=== PATIENT | male | born 1965 | race Two or more races ===

== ENCOUNTER 2024-08-23 08:59 | Outpatient (CLI) | payer OTHER ==
[~2024-08-23] VITALS: Ht 170.2 cm; Wt 86.2 kg
[2024-08-23 10:10] LABS: PH,URINE 5.5 (5.0-8.0); URINE APPEARANCE Clear; URINE BILIRRUBIN Negative (NEGATIVE); URINE BLOOD Small; URINE COLOR Yellow; URINE GLUCOSE Negative (NEGATIVE); URINE KETONE Negative (NEGATIVE); URINE LEUKOCYTE Negative; URINE NITRATE Negative; URINE PROTEIN Negative (NEGATIVE); URINE UROBILINOGEN 0.2 E.U./dl
[2024-08-23 10:11] LABS: URINE BACTERIA 28.1 uL (0.0-1933); URINE EPITHELIAL CELLS 3.4 uL (0.0-38.8); URINE RBC 28.1 uL (0.0-20.8); URINE WBC 3.7 uL (0.0-23.2)
[2024-08-23 10:13] LABS: BASO % 0.8 % (0.1-1.2); EOS # 0.14 (0.04-0.54); EOS % 1.9 % (0.7-7.0); HEMATOCRIT 42.7 % (40.1-51.0); HEMOGLOBIN 14.5 g/dL (13.7-17.5); LYMPH # 2.56 (1.18-3.74); LYMPH % 34.6 % (19.3-53.1); MEAN CORPUSCULAR HEMOGLOBIN 30.4 pg (25.6-32.2); MONO # 0.62 (0.24-0.82); MONO % 8.4 % (4.7-12.5); NEUT # 3.96 (1.56-6.13); NEUT % 53.6 % (34.0-71.1); PLATELET COUNT 193 K/uL (163-369); RED BLOOD COUNT 4.77 M/uL (4.63-6.08); RED CELL DISTRIBUTION WIDTH 12.9 % (11.6-14.4)
[2024-08-23 10:16] VITALS: BP 150/86
[2024-08-23 10:43] LABS: ALBUMIN 3.8 gm/dL (3.4-5.0); BILIRUBIN TOTAL 0.71 mg/dL (0.3-1.2); CALCIUM 8.2 mg/dL (8.5-10.1); CREATININE SERUM 0.82 mg/dL (0.70-1.30); GFR 96.5; GLOBULINA 2.7 G/DL (2.4-3.5); POTASSIUM 4.14 mEq/L (3.5-5.1); TOTAL PROTEIN 6.5 gm/dL (6.4-8.2)
[2024-08-23 10:46] LABS: INR 0.96; PARTIAL THROMBOPLASTIN TIME 26.1 SECONDS (22.0-34.0); PROTHROMBIN TIME 10.5 SECONDS (9.0-11.5)
[2024-08-23 11:31] LABS: COL EPI 79 SECONDS (82-175)
== END 2024-08-23 09:11 | disposition home or self-care (01) ==
LOC: LAB 08:59 → RAD 08:59 → LAB 09:11
PROVIDERS: ATTEND Orthopaedic Surgery
DX: D64.9 Anemia, unspecified (principal); E88.89 Other specified metabolic disorders; D68.8 Other specified coagulation defects; N39.0 Urinary tract infection, site not specified; Z22.322 Carrier or suspected carrier of Methicillin resistant Staphylococcus aureus; Z20.822 Contact with and (suspected) exposure to COVID-19; Z76.89 Persons encountering health services in other specified circumstances; I10 Essential (primary) hypertension

== ENCOUNTER 2024-08-31 11:30 | Outpatient (CLI) | payer OTHER | END 2024-08-31 11:37 | disposition home or self-care (01) | LOC: TOM 11:30 | PROVIDERS: ATTEND Orthopaedic Surgery | DX: M25.552 Pain in left hip (principal); M16.11 Unilateral primary osteoarthritis, right hip ==

== ENCOUNTER 2024-09-01 15:12 | Inpatient (IN) | payer OTHER ==
[~2024-09-01] VITALS: Ht 170.2 cm; Wt 89.4 kg
[2024-09-01 15:30] VITALS: BP 150/86
[2024-09-06] MEDS ORDERED: CEFAZOLIN SODIUM 1,000 MG VIAL ONE ×2 (09:18→18:29)
[2024-09-06] MEDS ORDERED: TRANEXAMIC ACID 100MG/1ML (1000MG) AMPUL IV ONE (09:18)
[2024-09-06] MEDS ORDERED: VANCOMYCIN HCL 1,000 MG VIAL ONE ×2 (10:49→12:07)
[2024-09-06] MEDS ORDERED: BUPIVACAINE HCL/Mpf 0.5% 10ML VIAL ONE (10:49)
[2024-09-06] MEDS ORDERED: KETOROLAC TROMETHAMINE 60 MG VIAL IM ONE (10:49)
[2024-09-06] MEDS ORDERED: LIDOCAINE HCL 1%/EPINEPHRINE 20ML VIAL IJ ONE (10:49)
[2024-09-06] MEDS ORDERED: MEPERIDINE HCL/PF 50 MG/ML VIAL IM PRN (14:30)
[2024-09-06] MEDS ORDERED: ONDANSETRON 4 MG TAB.RAPDIS PO PRN (14:30)
[2024-09-06] MEDS ORDERED: SODIUM CHLORIDE 0.45 % 1,000 ML IV SCH (14:30)
[2024-09-06] MEDS ORDERED: ONDANSETRON HCL 2 MG/ML VIAL IV PRN (14:30)
[2024-09-06] MEDS ORDERED: PROMETHAZINE HCL 50 MG/ML AMPUL IM PRN (14:30)
[2024-09-06] MEDS ORDERED: TRAMADOL HCL 50 MG TABLET PO PRN (14:30)
[2024-09-06] MEDS ORDERED: ACETAMINOPHEN 325 MG TABLET PO SCH (17:00)
[2024-09-06] MEDS ORDERED: CEFAZOLIN SODIUM 1,000 MG VIAL IV SCH (17:00)
[2024-09-06] MEDS ORDERED: CELECOXIB 200 MG CAPSULE PO SCH (17:00)
[2024-09-06] MEDS ORDERED: PANTOPRAZOLE SODIUM 40 MG TABLET.DR PO NR (17:00)
[2024-09-06 20:00] VITALS: BP 132/79; O2SAT 96
[2024-09-06] MEDS ORDERED: KETOROLAC TROMETHAMINE 10 MG TABLET PO SCH (21:00)
[2024-09-07 00:43] VITALS: BP 118/71; O2SAT 95
[2024-09-07 08:01] LABS: BASO % 0.6 % (0.1-1.2); EOS # 0.08 (0.04-0.54); HEMATOCRIT 34.5 % (40.1-51.0); HEMOGLOBIN 11.6 g/dL (13.7-17.5); LYMPH # 2.09 (1.18-3.74); LYMPH % 25.4 % (19.3-53.1); MEAN CORPUSCULAR HEMOGLOBIN 29.7 pg (25.6-32.2); MONO # 0.85 (0.24-0.82); MONO % 10.3 % (4.7-12.5); NEUT # 5.14 (1.56-6.13); NEUT % 62.5 % (34.0-71.1); PLATELET COUNT 147 K/uL (163-369); RED BLOOD COUNT 3.91 M/uL (4.63-6.08); RED CELL DISTRIBUTION WIDTH 12.5 % (11.6-14.4)
[2024-09-07 08:53] VITALS: BP 107/68; O2SAT 95
[2024-09-07] MEDS ORDERED: PANTOPRAZOLE SODIUM 40 MG TABLET.DR PO SCH (09:00)
[2024-09-07] MEDS ORDERED: RIVAROXABAN 10 MG TAB PO SCH (09:00)
[2024-09-07] MEDS ORDERED: SOD FERRIC GLUC COMPLX/SUCROSE 62.5 MG in 0.9 % SODIUM CHLORIDE 50 ML IV SCH (12:00)
[2024-09-07 13:13] LABS: COVID-19 AG NEGATIVE (NEGATIVE)
[2024-09-07 13:50] LABS: ALBUMIN 3.1 gm/dL (3.4-5.0); BILIRUBIN TOTAL 1.68 mg/dL (0.3-1.2); CREATININE SERUM 0.75 mg/dL (0.70-1.30); GFR 106.59; GLOBULINA 2.4 G/DL (2.4-3.5); POTASSIUM 4.2 mEq/L (3.5-5.1); TOTAL PROTEIN 5.5 gm/dL (6.4-8.2)
[2024-09-08 00:59] VITALS: BP 112/69; O2SAT 100
[2024-09-08 06:19] LABS: BASO % 0.5 % (0.1-1.2); EOS # 0.13 (0.04-0.54); EOS % 1.4 % (0.7-7.0); HEMATOCRIT 29.4 % (40.1-51.0); HEMOGLOBIN 10.3 g/dL (13.7-17.5); LYMPH # 1.94 (1.18-3.74); LYMPH % 20.9 % (19.3-53.1); MEAN CORPUSCULAR HEMOGLOBIN 31.1 pg (25.6-32.2); MONO # 0.83 (0.24-0.82); NEUT # 6.29 (1.56-6.13); NEUT % 67.9 % (34.0-71.1); PLATELET COUNT 135 K/uL (163-369); RED BLOOD COUNT 3.31 M/uL (4.63-6.08); RED CELL DISTRIBUTION WIDTH 12.5 % (11.6-14.4)
[2024-09-08 08:46] VITALS: BP 112/64; O2SAT 96
[2024-09-08] MEDS ORDERED: SENNA/DOCUSATE SODIUM 1 TAB TABLET PO SCH (09:00)
== END 2024-09-08 15:45 | DRG 470 ==
LOC: SURH 09-06 07:00 → O/R 09-06 07:45 → SURH 09-06 07:45
PROVIDERS: ADMIT Orthopaedic Surgery; ATTEND Orthopaedic Surgery
PROC: 0SR90JZ Replacement of Right Hip Joint with Synthetic Substitute, Open Approach (ICD-10-PCS; principal; 2024-09-06 07:00)
DX: M16.11 Unilateral primary osteoarthritis, right hip (principal); M70.61 Trochanteric bursitis, right hip